=== PATIENT | male | born 1955 | race Caucasian/White ===

== ENCOUNTER 2018-01-31 16:05 | Emergency (ER) | payer MEDICARE, OTHER ==
[~2018-01-31] VITALS: Ht 190.5 cm; Wt 150.0 kg
[2018-01-31] MEDS ORDERED: IBUP-2071 PO (16:07)
[2018-01-31] MEDS ORDERED: LIDOCAINE 2%/EPI 1:200,000/PF 10 ML VIAL INJ ONE (16:45)
[2018-01-31 16:57] VITALS: BP 119/68
== END 2018-01-31 18:54 | disposition home or self-care (01) ==
LOC: EMS 16:07
DX: S80.212A Abrasion, left knee, initial encounter (principal); S49.92XA Unspecified injury of left shoulder and upper arm, initial encounter; Z88.0 Allergy status to penicillin; W25.XXXA Contact with sharp glass, initial encounter; Y93.89 Activity, other specified; Y92.89 Other specified places as the place of occurrence of the external cause; Y99.8 Other external cause status
CPT/HCPCS: 29505